=== PATIENT | female | born 1955 | race Two or more races ===

== ENCOUNTER 2019-06-05 14:58 | Emergency (ER) | payer OTHER ==
[~2019-06-05] VITALS: Ht 157.5 cm; Wt 54.4 kg
[2019-06-05 15:52] VITALS: BP 169/73
[2019-06-05] MEDS ORDERED: IBUPROFEN 600 MG TAB PO ONE (16:00)
[2019-06-05] MEDS ORDERED: ACETAMINOPHEN/CODEINE#3 (300/30mg) TAB PO ONE (17:45)
== END 2019-06-05 18:16 | disposition home or self-care (01) ==
LOC: ER 14:58
DX: S52.571A Other intraarticular fracture of lower end of right radius, initial encounter for closed fracture (principal); S52.611A Displaced fracture of right ulna styloid process, initial encounter for closed fracture; I10 Essential (primary) hypertension; Z88.0 Allergy status to penicillin; W00.0XXA Fall on same level due to ice and snow, initial encounter; Y93.89 Activity, other specified; Y92.89 Other specified places as the place of occurrence of the external cause; Y99.8 Other external cause status
CPT/HCPCS: 29125; 73110